=== PATIENT | female | born 1955 | race Caucasian/White ===

== ENCOUNTER 2016-12-12 13:51 | Emergency (ER) | payer MEDICARE, OTHER ==
[~2016-12-12] VITALS: Wt 71.0 kg
[~2016-12-12 13:51] MED LIST: AMLO-147 PO; ATOR10TA65 PO; BENA40TA41 PO; HYD25 PO; INSU100V23 SC; METO-429 PO; NPH,100V10 SC
[2016-12-12] MEDS ORDERED: PSEU30TA38 PO (15:21)
[2016-12-12] MEDS ORDERED: FLUT9.9S NASAL (15:21)
[2016-12-12] MEDS ORDERED: BENZ100C70 PO (15:22)
[2016-12-12] MEDS ORDERED: PROM5SYR2 PO (15:22)
--- NOTE | 2016-12-12 18:27 | ERD ---
DATE OF SERVICE: HISTORY OF PRESENT ILLNESS: This is a 61-year-old female coming in complaining of a runny nose, sor e throat, body aches, and a productive cough. Patient states she has only been taking cough drops. No fevers, no sick contacts at home. No shortness of breath, no vomiting, no abdominal pain, no ch edson in urination or bowel movement. PAST MEDICAL HISTORY: Denies. ALLERGIES: TO SULFA AND TRAMADOL. SURGICAL HISTORY: Amputation. SOCIAL HISTORY: Denies. REVIEW OF SYSTEMS: A 12-point review of systems was done. Refer to HPI for positives, all other sy stems negative. PHYSICAL EXAMINATION VITAL SIGNS: Temperature is 98, pulse 62, blood pressure is 175/91, respiratory rate 18, O2 saturat ion 99% on room air. Pain intensity is 0/10. GENERAL: The patient is well-appearing, well-nourished, in no acute distress. HEART: Regular rate and rhythm. No murmurs, clicks, rubs or gallops. No S3 or S4. CHEST: Clear to auscultation bilaterally. There are no rales, wheezes or rhonchi. HEENT: Atraumatic. Conjunctivae are pink. Pupils equal, round, and reactive to light. There is no s cleral icterus. Tympanic membranes clear bilaterally. Oropharynx clear. No nystagmus or photophobia . ABDOMEN: Soft, nontender and nondistended. Good bowel sounds. No rebound or guarding. No gross allen tonitis. No gross organomegaly or masses. No Tolbert sign or McBurney point tenderness. SKIN: There is no apparent rash or petechia. The skin is warm and dry. NEURO: Alert and oriented. Cranial nerves 2-12 intact. Motor strength in all 4 extremities with 5/5 strength. Sensation grossly intact. Normal speech and gait. Babinski negative. DTR 2+ throughout. DIAGNOSIS: Upper respiratory infection. MEDICAL DECISION MAKING: I have low suspicion for pneumonia, low suspicion for meningitis or sepsis . Low suspicion for bacterial HEENT infection, low suspicion for meningitis or sepsis. DISCHARGE: The patient is discharged stable. Patient given prescription for Flonase, Sudafed, Phen ergan with Codeine, and Tessalon, told to follow up with primary care within 1 to 2 days for reevalu ation. The patient was told if symptoms progress or worsen to return to the ER. All other question s answered at time of discharge. Discharge summary given at the time of departure. Patient underst ood and complied with plan. Dictated By: MAGALIS PIRES for JENNY VILLALOBOS/TARI Conf#: [id number] DID#: [id number]
== END 2016-12-12 15:53 | disposition home or self-care (01) ==
LOC: FTE 13:51
DX: J06.9 Acute upper respiratory infection, unspecified (principal); I10 Essential (primary) hypertension; E11.9 Type 2 diabetes mellitus without complications
CPT/HCPCS: 99284